=== PATIENT | female | born 1950 | race Caucasian/White ===

== ENCOUNTER → 2024-02-10 | Outpatient (CLI) | payer MEDICARE ==
--- NOTE | 2024-02-10 13:14 | US ---
EXAMINATION TYPE: US renals and bladder DATE OF EXAM: 02/10/2024 COMPARISON: NONE CLINICAL INDICATION: Female, 73 years old with history of N18.31 , E11.9; EXAM MEASUREMENTS: Right Kidney: 9.3 x 3.6 x 4.6 cm Left Kidney: 8.4 x 3.3 x 3.8 cm Right Kidney: Complex area seen lower pole: 3.8 x 3.3 x 3.0 cm. Anechoic area seen upper pole: 1.2 x 1.2 x 0.8 cm. Left Kidney: Small in size. *Cortex appears thin. *Many anechoic areas seen throughout the kidney, l argest seen measures 1.4 x 1.7 x 1.0 cm. Hyperechoic focus seen at mid: 0.5 x 0.4 x 0.2 cm. Bladder: Hypoechoic area seen anterior bladder wall measurin.4 x 1.1 x 0.6 cm. Bilateral Jets seen: Yes IMPRESSION: 1. Diminutive kidneys. 2. Minimal cystic changes. 3. 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
--- NOTE | 2024-02-11 23:46 | BD ---
EXAMINATION TYPE: Axial Bone Density DATE OF EXAM: 02/10/2024 CLINICAL HISTORY: 73 years old Female. ICD-10 CODE: M85.851 OSTEOPENIA OF RIGHT HIP Height: 63 in Weight: 163 lbs FRAX RISK QUESTIONS: Secondary Osteoporosis: 3. Menopause before 45: partial hysterectomy age 42Current RISK FACTORS MEDICATIONS: EXAM MEASUREMENTS: Bone mineral densitometry was performed using the [employer]. Bone mineral density as measured about the Lumbar spine is: ----- L1-L4(G/cm2): 1.375 T Score Values are as follows: ----- L1: 1.3 ----- L2: 2.3 ----- L3: 1.9 ----- L4: 1.1 ----- L1-L4: 1.6 Z Score Values are as follows: ----- L1: 2.7 ----- L2: 3.8 ----- L3: 3.3 ----- L4: 2.5 ----- L1-L4: 3.0 Bone mineral density baseline Bone mineral density about the R hip (g/cm2): 0.866 Bone mineral density about the L hip (g/cm2): 0.920 T Score values are as follows: -----R Neck: -1.4 -----L Neck: -1.1 -----R Total: -1.1 -----L Total: -0.7 Z Score values are as follows: -----R Neck: 0.3 -----L Neck: 0.6 -----R Total: 0.3 -----L Total: 0.7 Bone mineral density baseline FRAX%s: The graph provided illustrates a 10.3% chance for a major osteoporotic fx and a 1.7% chance f or the hips probability for fx in 10 years time. IMPRESSION: Osteopenia (T Score between -2.5 and -1). There is slightly increased risk of fracture and the patient may be considered for treatment. Re-Screen 2-5 years. NOTE: T-SCORE=SD OF THE YOUNG ADULT MEAN.
== END | disposition home or self-care (01) ==
LOC: RADUSWWP 12:20
PROVIDERS: ATTEND Internal Medicine
DX: N18.31 Chronic kidney disease, stage 3a (principal); M85.851 Other specified disorders of bone density and structure, right thigh; E11.9 Type 2 diabetes mellitus without complications; Q61.00 Congenital renal cyst, unspecified
CPT/HCPCS: 76770; 77080

== ENCOUNTER → 2024-04-19 | Outpatient (CLI) | payer MEDICARE ==
[2024-04-19 21:00] LABS: ALT 16 U/L (8-44); AST 25 U/L (13-35); Albumin 4.6 g/dL (3.8-4.9); Albumin/Globulin Ratio 1.77 Ratio (1.60-3.17); Alkaline Phosphatase 101 U/L (41-126); BUN/Creat Ratio 24.78 Ratio (12.00-20.00); Blood Urea Nitrogen 44.6 mg/dL (9.0-27.0); Calcium 9.4 mg/dL (8.7-10.3); Chloride 101 mmol/L (96-109); Globulin 2.6 g/dL (1.6-3.3); Glucose 92 mg/dL (70-110); Potassium 4.5 mmol/L (3.5-5.5); Sodium 140 mmol/L (135-145); Total Bilirubin 0.4 mg/dL (0.3-1.2); Total Protein 7.2 g/dL (6.2-8.2)
[2024-04-19 21:17] LABS: HCT 44.9 % (37.2-46.3); HGB 14.1 g/dL (12.0-15.0); MCH 27.1 pg (27.0-32.0); MCHC 31.4 g/dL (32.0-37.0); MCV 86.3 FL (80.0-97.0); Mean Platelet Volume 11.2 FL (9.5-12.2); NRBC Per 100 WBC 0 X 10*3/uL (0.00-0.01); Platelet Count 253 X 10*3/uL (140-440); RDW 14.4 % (11.5-14.5); WBC 10.57 X 10*3/uL (4.50-10.00)
[2024-04-22 22:17] LABS: NT-Pro-B-Type Natriuretic Pept 5540 pg/mL (0-125)
== END | disposition home or self-care (01) ==
LOC: LABWHC1 16:01
PROVIDERS: ATTEND Student in an Organized Health Care Education/Training Program
DX: Z13.6 Encounter for screening for cardiovascular disorders (principal); I50.9 Heart failure, unspecified; D72.9 Disorder of white blood cells, unspecified; E11.9 Type 2 diabetes mellitus without complications; E03.9 Hypothyroidism, unspecified; E78.5 Hyperlipidemia, unspecified; R79.89 Other specified abnormal findings of blood chemistry
CPT/HCPCS: 36415; 80053; 83880; 85027

== ENCOUNTER → 2024-07-04 | Outpatient (CLI) | payer MEDICARE ==
--- NOTE | 2024-07-04 14:07 | CT ---
EXAMINATION TYPE: CT abdomen pelvis wo con DATE OF EXAM: 07/04/2024 COMPARISON: Ultrasound 02/10/2024 CLINICAL INDICATION: Female, 73 years old with history of N28.1 KIDNEY STONE; [facility], CYST ON KIDNEY TECHNIQUE: CT scan of the abdomen and pelvis is performed without oral or IV contrast. CT DLP: 589.7 mGycm Automated exposure control for dose reduction was used. FINDINGS: Within the limitations of a non-contrast study, the following observations are made. LUNG BASES: Basilar atelectasis. Partial inclusion of cardiac leads. Correlate for prior cardiac valv e replacement surgery. Mild cardiomegaly and small hiatal hernia. Subpleural bilateral nodularity at the lung bases measuring less than 5 mm is too small to characterize but likely benign. LIVER/GB: No significant abnormality is appreciated. PANCREAS: No acute abnormality. SPLEEN: No significant abnormality is seen. ADRENALS: No significant abnormality is seen. KIDNEYS: No hydronephrosis or nephrolithiasis. Atrophic changes of the left kidney. Lower pole hypodense lesion medially is too small to characteriz e but statistically most likely related to benign simple cyst. The right kidney is lobulated with areas of cortical loss and a mid to lower pole renal lesion measur ing 3.4 cm with a small nodule which is isodense and does not meet the criteria of a simple cyst. Add itional smaller 7 mm too small to characterize lesion likely related to benign cyst. BOWEL: Mild diverticulosis but no CT evidence of diverticulitis.. GENITAL ORGANS: No gross abnormality seen. LYMPH NODES: No greater than 1cm abdominal or pelvic lymph nodes are appreciated. OSSEOUS STRUCTURES: Generalized demineralization with mild degenerative disc disease. Mild bilateral hypertrophic arthropathy. OTHER: Moderate atherosclerotic change of aorta and proximal iliac vasculature. Post hysterectomy kristie nges. Soft tissue nodule along the left Likely related to residual ovarian tissue correlate clinically. Small anterior wall fat-containing he rnias. No inflammation.. IMPRESSION: 1. No hydronephrosis or nephrolithiasis. 2. Atrophic left kidney correlate for chronic medical renal disease. 3. There is a 3.8 cm hypodense lesion involving the mid to lower pole right kidney measuring 9 Hounsf [place]eld units suggestive of simple cyst. However, along its peripheral margin there is a hyperdense 6 mm nodule. Difficult by noncontrast technique to determine if this is a small septated adjacent hemorrh agic or high proteinaceous Bosniak classification 2 cyst or mural nodule related to the larger cyst. Recommend MRI. [facility], , 07/04/2024 2:05 PM
== END | disposition home or self-care (01) ==
LOC: RADCTMAIN 13:18
PROVIDERS: ATTEND Urology
DX: N20.0 Calculus of kidney (principal); N28.1 Cyst of kidney, acquired; N26.1 Atrophy of kidney (terminal); I70.0 Atherosclerosis of aorta; K57.90 Diverticulosis of intestine, part unspecified, without perforation or abscess without bleeding; I51.7 Cardiomegaly; J98.11 Atelectasis
CPT/HCPCS: 74176